=== PATIENT | male | born 1985 | race African-American/Black ===

== ENCOUNTER 2017-06-08 10:17 | Emergency (ER) | payer OTHER ==
[~2017-06-08] VITALS: Ht 182.9 cm; Wt 98.4 kg
[~2017-06-08 10:17] MED LIST: ALPR-429 PO; AMLO-96 PO; AMOX-559 PO; CEPH500T7 PO; FLUT16SP19 NS; GLUC1KIT4 IJ; HYDR-318 PO; IBU800 PO; IBUP800T37 PO; INSU100C14 SQ; INSU300I SQ; LISI-362 PO; LISI-374 PO; LISI20TA29 PO; OXYC-865 PO; PRED20TA6 PO; PROM-110 PO; SERT-181 PO; SERT-184 PO; SULF-198 PO
[2017-06-08] MEDS ORDERED: ALPR-429 PO (10:35)
--- NOTE | 2017-06-08 10:39 | ER Report ---
History and Physical Time Seen By MD: 10:38 Hx. of Stated Complaint: PT REPORTS SEVERE HEADACHE 10/10, WEAKNESS, NAUSEA, ABDOMINAL PAIN, THROBBING BEHIND EYES, DIZZINESS, FATIGUE; RECEIVING IVIG TREATMENTS FOR DIABETIC NEUROPATHY HPI/ROS CC: Headache other control, nausea, muscle aches. HPI: 31-year-old male with a past medical history of hypertension, type I diabetes on insulin pump. Patient presented from infusion therapy. Patient is receiving IVIG 400 g per day for his diabetic neuropathy. This is. Ordered per his neurologist at [facility]. His diabetic pump is being managed by his aircraft machinist helper at [facility]. This is his 3rd day of therapy for his IVIG. After the 1st day felt slightly weak. Secondary he felt with more malaise. Today he woke up with nausea but no emesis. He feels somewhat dizzy. He does have a headache which she is rating it as an 8 out of 10. It is behind his eyes. There are no leading factors. His blood pressure was slightly elevated at infusion therapy with a systolic pressure in the 180s. This is most likely secondary to his headache but he was sent to the emergency department for further evaluation and treatment. Upon arrival to the emergency department patient is continued with a headache, malaise, no blurred vision, no chest pain, slight shortness of breath , no diaphoresis. He states that he did have diarrhea on day 2 of his IVIG therapy. ROS: 12 point review of systems essentially negative other than what's mentioned in history of present illness. NURSES AND OLD MEDICAL RECORDS: Reviewed PMH: Reviewed SURGICAL HX: Reviewed FAMILY HX: Noncontributory SOCIAL HX: He is and denies smoking alcohol or illicit drugs. VITAL SIGNS: Reviewed CONSTITUTIONAL: 31-year-old male in moderate distress. PHYSICAL EXAM: HEENT: Pupils equal round reactive to light and accommodate, EOMI, tympanic membranes pearly white umbo present with good light reflex. Lips dry mucous membranes moist gums nonbleeding uvula midline and rises equally with phonation, oropharynx noninjected, teeth intact. NECK: Neck supple, thyroid not appreciated, anterior and posterior cervical lymphadenopathy not appreciated. Trachea midline and rises equally with phonation. CARDIAC: S1-S2 regular rate rhythm no murmurs rubs or gallops. LUNGS: Lungs clear bilaterally posteriorly in all romero. Good air movement. ABDOMEN: Abdomen soft, nondistended, bowel sounds active in all 4 quadrants, no bruits noted, no CVA tenderness. MUSCULOSKELETAL: Strength 5 out of 5 x 4 extremities, no deformities noted. NEUROLOGIC: Patient alert and oriented by 3 Allergies: Coded Allergies: No Known Drug Allergies (Unverified , 05/15/17) Home Meds Active Scripts Glucagon,Human Recombinant (GLUCAGON EMERGENCY KIT) 1 Mg Kit, 1 MG IJ ONCE, #1 KIT Prov:RAMIRO URBANO MD 09/19/16 Reported Medications Alprazolam (XANAX) 0.5 Mg Tablet, 1 TAB PO TID, TAB 06/08/17 Amlodipine Besylate (AMLODIPINE BESYLATE) 5 Mg Tablet, 1 TAB PO QDAY, TAB 06/06/17 Lisinopril (LISINOPRIL) 40 Mg Tablet, 40 MG PO QDAY, TAB 06/06/17 Insulin Aspart (NOVOLOG) 100 Unit/1 Ml Cartridge, 10 UNIT SQ TID 08/11/16 Hx Smoking: Yes Smoking Status: Former Smoker Exposure to Second Hand Smoke?: No ( continues to smoke) Hx Substance Use Disorder: No Hx Alcohol Use: Yes (RARELY) Constitutional Vital Sign - Last 24 Hours 06/08/17 06/08/17 06/08/17 06/08/17 10:17 10:26 10:26 10:30 Temp 98.4 Pulse ??? 92 Resp 18 B/P (MAP) 199/128 199/128 (151) 206/124 (151) Pulse Ox 89 O2 Delivery Room Air 06/08/17 06/08/17 06/08/17 06/08/17 10:32 10:47 10:52 11:07 Pulse 85 ? 86 Resp 13 0 Pulse Ox 91 94 06/08/17 06/08/17 06/08/17 06/08/17 11:22 11:30 11:37 11:52 Pulse 79 82 84 Resp 13 25 9 B/P (MAP) 178/108 (131) Pulse Ox 91 96 90 06/08/17 06/08/17 06/08/17 06/08/17 11:53 12:00 12:07 12:18 Pulse 63 Resp 24 B/P (MAP) 165/104 (124) 159/108 (125) 181/117 (138) Pulse Ox 99 06/08/17 06/08/17 06/08/17 06/08/17 12:20 12:22 12:30 12:37 Temp 98.3 Pulse 97 ??? Resp 15 B/P (MAP) ???/??? (2105) Pulse Ox 97 Medical Decision Making Data Points Result Diagram: 06/08/17 1045 06/08/17 1045 Laboratory Hematology Test 06/08/17 10:35 06/08/17 10:45 06/08/17 13:29 Urine Color Yellow Urine Clarity Clear Urine pH 6.0 pH (4.8-9.5) Urine Specific Boutte 1.017 Urine Protein 100 mg/dL (NEGATIVE) Urine Glucose (UA) Negative mg/dL (NEGATIVE) Urine Ketones Negative mg/dL (NEGATIVE) Urine Blood Large (NEGATIVE) Urine Nitrite Negative (NEGATIVE) Urine Bilirubin Negative (NEGATIVE) Urine Urobilinogen Negative mg/dL (0.2-1.9) Urine Leukocyte Esterase Negative (NEGATIVE) Urine RBC 51 /HPF (0-2/HPF) Urine WBC 3 /HPF (0-5/HPF) Urine Squamous Epithelial Cells None /LPF (</=FEW) Urine Transitional Epithelial Cells Few /LPF (NONE-FEW) Urine Bacteria Negative /HPF (NONE-FEW) Urine Hyaline Casts Few /LPF (NONE-FEW) Urine Mucus Few /HPF (NONE-FEW) Red Blood Count 4.55 M/uL (4.00-5.60) Mean Corpuscular Volume 83.1 fL (80.0-96.0) Mean Corpuscular Hemoglobin 29.5 pg (26.0-33.0) Mean Corpuscular Hemoglobin Concent 35.5 g/dL (32.0-36.0) Red Cell Distribution Width 12.6 % (11.5-14.5) Mean Platelet Volume 7.3 fL (7.2-11.1) Neutrophils (%) (Auto) 64.6 % (39.4-72.5) Lymphocytes (%) (Auto) 22.5 % (17.6-49.6) Monocytes (%) (Auto) 11.3 % (4.1-12.4) Eosinophils (%) (Auto) 0.7 % (0.4-6.7) Basophils (%) (Auto) 0.9 % (0.3-1.4) Nucleated RBC Relative Count (auto) 0.0 /100WBC Neutrophils # (Auto) 4.3 K/uL (2.0-7.4) Lymphocytes # (Auto) 1.5 K/uL (1.3-3.6) Monocytes # (Auto) 0.7 K/uL (0.3-1.0) Eosinophils # (Auto) 0.0 K/uL (0.0-0.5) Basophils # (Auto) 0.1 K/uL (0.0-0.1) Nucleated RBC Absolute Count (auto) 0.00 K/uL Sodium Level 138 mmol/L (137-145) Potassium Level 3.9 mmol/L (3.5-5.0) Chloride Level 103 mmol/L (98-107) Carbon Dioxide Level 24 mmol/L (22-30) Blood Urea Nitrogen 18 mg/dl (9-21) Creatinine 1.10 mg/dl (0.66-1.25) Glomerular Filtration Rate Calc > 60.0 Random Glucose 122 mg/dl (75-110) Calcium Level 9.2 mg/dl (8.4-10.2) Magnesium Level 1.7 mg/dl (1.7-2.2) Total Bilirubin 0.9 mg/dl (0.2-1.3) Aspartate Amino Transf (AST/SGOT) 27 U/L (0-35) Alanine Aminotransferase (ALT/SGPT) 33 U/L (0-56) Alkaline Phosphatase 96 U/L (0-126) Total Creatine Kinase 142 U/L (55-170) Troponin I < 0.012 ng/ml Total Protein 9.3 gm/dl (6.3-8.2) Albumin 3.7 g/dl (3.5-5.0) Prothrombin Time 13.7 seconds (12.0-14.4) Prothromb Time International Ratio 1.05 Activated Partial Thromboplast Time 27 seconds (23-35) Chemistry Test 06/08/17 10:35 06/08/17 10:45 06/08/17 13:29 Urine Color Yellow Urine Clarity Clear Urine pH 6.0 pH (4.8-9.5) Urine Specific Boutte 1.017 Urine Protein 100 mg/dL (NEGATIVE) Urine Glucose (UA) Negative mg/dL (NEGATIVE) Urine Ketones Negative mg/dL (NEGATIVE) Urine Blood Large (NEGATIVE) Urine Nitrite Negative (NEGATIVE) Urine Bilirubin Negative (NEGATIVE) Urine Urobilinogen Negative mg/dL (0.2-1.9) Urine Leukocyte Esterase Negative (NEGATIVE) Urine RBC 51 /HPF (0-2/HPF) Urine WBC 3 /HPF (0-5/HPF) Urine Squamous Epithelial Cells None /LPF (</=FEW) Urine Transitional Epithelial Cells Few /LPF (NONE-FEW) Urine Bacteria Negative /HPF (NONE-FEW) Urine Hyaline Casts Few /LPF (NONE-FEW) Urine Mucus Few /HPF (NONE-FEW) White Blood Count 6.6 k/uL (4.5-11.0) Red Blood Count 4.55 M/uL (4.00-5.60) Hemoglobin 13.4 g/dL (14.0-18.0) Hematocrit 37.8 % (42.0-52.0) Mean Corpuscular Volume 83.1 fL (80.0-96.0) Mean Corpuscular Hemoglobin 29.5 pg (26.0-33.0) Mean Corpuscular Hemoglobin Concent 35.5 g/dL (32.0-36.0) Red Cell Distribution Width 12.6 % (11.5-14.5) Platelet Count 282 K/uL (150-450) Mean Platelet Volume 7.3 fL (7.2-11.1) Neutrophils (%) (Auto) 64.6 % (39.4-72.5) Lymphocytes (%) (Auto) 22.5 % (17.6-49.6) Monocytes (%) (Auto) 11.3 % (4.1-12.4) Eosinophils (%) (Auto) 0.7 % (0.4-6.7) Basophils (%) (Auto) 0.9 % (0.3-1.4) Nucleated RBC Relative Count (auto) 0.0 /100WBC Neutrophils # (Auto) 4.3 K/uL (2.0-7.4) Lymphocytes # (Auto) 1.5 K/uL (1.3-3.6) Monocytes # (Auto) 0.7 K/uL (0.3-1.0) Eosinophils # (Auto) 0.0 K/uL (0.0-0.5) Basophils # (Auto) 0.1 K/uL (0.0-0.1) Nucleated RBC Absolute Count (auto) 0.00 K/uL Glomerular Filtration Rate Calc > 60.0 Calcium Level 9.2 mg/dl (8.4-10.2) Magnesium Level 1.7 mg/dl (1.7-2.2) Total Bilirubin 0.9 mg/dl (0.2-1.3) Aspartate Amino Transf (AST/SGOT) 27 U/L (0-35) Alanine Aminotransferase (ALT/SGPT) 33 U/L (0-56) Alkaline Phosphatase 96 U/L (0-126) Total Creatine Kinase 142 U/L (55-170) Troponin I < 0.012 ng/ml Total Protein 9.3 gm/dl (6.3-8.2) Albumin 3.7 g/dl (3.5-5.0) Prothrombin Time 13.7 seconds (12.0-14.4) Prothromb Time International Ratio 1.05 Activated Partial Thromboplast Time 27 seconds (23-35) Coagulation Test 06/08/17 13:29 Prothrombin Time 13.7 seconds Prothromb Time International Ratio 1.05 Activated Partial Thromboplast Time 27 seconds Urinalysis Test 06/08/17 10:35 Urine Color Yellow Urine Clarity Clear Urine pH 6.0 pH (4.8-9.5) Urine Specific Boutte 1.017 Urine Protein 100 mg/dL (NEGATIVE) Urine Glucose (UA) Negative mg/dL (NEGATIVE) Urine Ketones Negative mg/dL (NEGATIVE) Urine Blood Large (NEGATIVE) Urine Nitrite Negative (NEGATIVE) Urine Bilirubin Negative (NEGATIVE) Urine Urobilinogen Negative mg/dL (0.2-1.9) Urine Leukocyte Esterase Negative (NEGATIVE) Urine RBC 51 /HPF (0-2/HPF) Urine WBC 3 /HPF (0-5/HPF) Urine Squamous Epithelial Cells None /LPF (</=FEW) Urine Transitional Epithelial Cells Few /LPF (NONE-FEW) Urine Bacteria Negative /HPF (NONE-FEW) Urine Hyaline Casts Few /LPF (NONE-FEW) Urine Mucus Few /HPF (NONE-FEW) EKG/Imaging EKG Interpretation Nose sinus rhythm, ventricular rate 84 bpm,. 144 ms, QRS duration 82 ms, QT 60 ms, QTC 425 ms. Imaging Chest x-ray: IMPRESSION: 1. No acute cardiopulmonary process is seen CT chest: IMPRESSION: Normal CT of the brain. No evidence of mass, acute ischemia or hemorrhage. CT abdomen and pelvis: IMPRESSION: Right kidney parenchymal edema and perinephric stranding; no radiopaque urolithiasis or hydronephrosis. Differential considerations include changes from a recently passed stone, a urinary tract infection/pyelonephritis, or potentially medical renal disease. ED Course/Re-evaluation ED Course Labs are basically within normal limits. Urine showed large amount of blood. CT abdomen and pelvis showed perinephric stranding which was a pyelonephritis or a recently passed ureteral calculi. Patient was given Levaquin and IV Rocephin. I discussed the case with his neurologist at [facility] Dr. Johnston. Report given that the patient had an three-day history of increasing nausea and malaise. Is most likely due to a passed ureteral calculi. He, Dr. Johnston has opted to hold IVIG at this time. Patient be discharged home on antiemetics and follow-up with Dr. Johnston. Patient aware of plan and in agreement. Patient will be discharged home on Levaquin And Zofran. Re-evaluation Medical decision making reaction to IVIG, influenza, strep, ureteral calculi. Decision to Disposition Date: Jun 08, 2017 Decision to Disposition Time: 14:45 Depart Departure Latest Vital Signs Vital Signs Date Time Temp Pulse Resp B/P (MAP) Pulse Ox O2 Delivery O2 Flow Rate FiO2 06/08/17 12:37 ??? 06/08/17 12:30 ???/??? (1665) 06/08/17 12:22 15 97 06/08/17 12:20 98.3 06/08/17 10:26 Room Air Impression: Primary Impression: Kidney stones Condition: Improved Disposition: HOME OR SELF-CARE Referrals: RAMIRO URBANO MD (PCP) New Scripts Ondansetron (ZOFRAN ODT) 4 Mg Tab.rapdis 8 MG PO Q6H Y for NAUSEA/VOMITING, #20 TAB.STEPHANIE 0 Refills Prov: DAMI SOL MD 06/08/17 Levofloxacin 750 Mg Tab (LEVAQUIN 750 MG TAB) 750 Mg Tablet 750 MG PO QDAY for 7 Days, #7 TAB Prov: DAMI SOL MD 06/08/17 Patient Instructions: Kidney Stones (ED) Additional Instructions: You have been given Levaquin for possible kidney infection take as directed. You have been given given Zofran for nausea take as directed. DAMI SOL MD Jun 08, 2017 10:39
[2017-06-08] MEDS ORDERED: ONDANSETRON 4 MG/2 ML VIAL IVP ONE (10:55)
[2017-06-08] MEDS ORDERED: HYDROmorphone(ER ONLY) 1 MG/ML IVP ONE (10:55)
[2017-06-08 11:04] LABS: PLATELET COUNT, AUTOMATED 282 K/uL (150-450)
--- NOTE | 2017-06-08 11:10 | RADIOLOGY IMAGING REPORT ---
FACILITY: [facility] PATIENT NAME: Jose Christian : 1985 MR: [id number] V: [id number] EXAM DATE: ORDERING PHYSICIAN: DAMI SOL TECHNOLOGIST: Location: [facility] Patient: Jose Christian : 1985 Visit/Account:[id number] Date of Sevice: 06/08/2017 HEAD W/O CONTRAST Provided history: Additional pertinent history: none TECHNIQUE: Imaging was obtained from the skull base through the vertex without intravenous contrast. Source images were reformatted in the coronal sagittal planes. One of the following dose optimization techniques was utilized in the performance of this exam: Autom ated exposure control; adjustment of the mA and/or kV according to the patient's size; or use of an i terative reconstruction technique. Specific details can be referenced in the facility's radiology CT exam operational policy. COMPARISON STUDIES: MRI 03/01/17 FINDINGS: Brain volume: Normal Acute cortical ischemia: None Chronic cortical and ganglionic ischemia: none significant Hemorrhage: None Masses / edema: None White matter: Normal Vessels: Normal Extra-axial: None significant Calvarium / scalp: Negative Skull base: negative Visualized sinuses / orbits: negative IMPRESSION: Normal CT of the brain. No evidence of mass, acute ischemia or hemorrhage. Report Dictated By: Zhang Reece MD at 06/08/2017 11:05 AM Report E-Signed By: Zhang Reece MD at 06/08/2017 11:07 AM WSN:[id number]
--- NOTE | 2017-06-08 11:22 | RADIOLOGY IMAGING REPORT ---
FACILITY: [facility] PATIENT NAME: Jose Christian : 1985 MR: [id number] V: [id number] EXAM DATE: ORDERING PHYSICIAN: DAMI SOL TECHNOLOGIST: Location: [facility] Patient: Jose Christian : 1985 Visit/Account:[id number] Date of Sevice: 06/08/2017 Exam type: CHEST PA AND LAT History: Headache no chest complaints Comparison: None. Findings: The lungs are free of acute effusions, infiltrates or edema. The trachea is in midline. The cardiac silhouette is normal in size. IMPRESSION: 1. No acute cardiopulmonary process is seen Report Dictated By: Adriana Horowitz MD at 06/08/2017 11:18 AM Report E-Signed By: Adriana Horowitz MD at 06/08/2017 11:19 AM WSN:[email or web address]
[2017-06-08] MEDS ORDERED: PROMETHAZINE 25 MG/ML 1 ML AMP IVP ONE (12:00)
--- NOTE | 2017-06-08 13:12 | RADIOLOGY IMAGING REPORT ---
FACILITY: [facility] PATIENT NAME: Jose Christian : 1985 MR: [id number] V: [id number] EXAM DATE: ORDERING PHYSICIAN: DAMI SOL TECHNOLOGIST: Location: [facility] Patient: Jose Christian : 1985 Visit/Account:[id number] Date of Sevice: 06/08/2017 EXAMINATION: CT ABDOMEN AND PELVIS WITHOUT CONTRAST COMPARISON: None. HISTORY: Right-sided abdominal pain. PROCEDURE: Multiplanar noncontrast CT of the abdomen and pelvis. One of the following dose optimizati on techniques was utilized in the performance of this exam: Automated exposure control; adjustment of the mA and/or kV according to the patient's size; or use of an iterative reconstruction technique. Specific details can be referenced in the facility's radiology CT exam operational policy. FINDINGS: Evaluation of the solid and viscus parenchymal organs and vascular structures is limited wi thout the benefit of IV contrast. Visualized thorax: Negative. Liver: Noncontrast imaging of the visualized liver is within normal limits. Gallbladder and biliary system: Negative Spleen: Spleen size is normal. Pancreas: Noncontrast imaging of the pancreas is within normal limits. Adrenal glands: Negative. Kidneys and bladder: Right kidney parenchymal edema and perinephric stranding. No radiopaque urolithi asis or hydronephrosis. Urinary bladder is unremarkable. Vessels: Small amount of aortic calcifications. No abdominal aortic aneurysm. Bowel and mesentery: Stomach is within normal limits. No small bowel obstruction. Appendix is unrem arkable. Small amount of stool within the colon. No focal region of bowel or mesenteric inflammatio n. Pelvic organs: Negative. Lymph nodes: No adenopathy. Free air/free fluid: None. Abdominal wall and osseous structures: Negative. IMPRESSION: Right kidney parenchymal edema and perinephric stranding; no radiopaque urolithiasis or hydronephrosi s. Differential considerations include changes from a recently passed stone, a urinary tract infectio n/pyelonephritis, or potentially medical renal disease. Report Dictated By: Nicholas Yang MD at 06/08/2017 1:02 PM Report E-Signed By: Nicholas Yang MD at 06/08/2017 1:08 PM WSN:[id number]
[2017-06-08 13:46] LABS: INR 1.05
[2017-06-08 14:00] VITALS: BP 162/101
[2017-06-08] MEDS ORDERED: cefTRIAXone 1 GM VIAL IM ONE (14:15)
[2017-06-08] MEDS ORDERED: LEVOFLOXACIN 750 MG TAB PO ONE (14:15)
[2017-06-08] MEDS ORDERED: LIDOCAINE 1% MDV 200 MG/20 ML INJ ONE (14:15)
[2017-06-08] MEDS ORDERED: cefTRIAXone 1 GM VIAL IVP ONE (14:20)
--- NOTE | 2017-06-08 14:38 | EKG ---
FACILITY: [facility] [place] PATIENT NAME: CHANTE MAI : [id number] MR: [id number] V: [id number] EXAM DATE: ORDERING PHYSICIAN: DAMI SOL TECHNOLOGIST: Test Reason : Blood Pressure : / mmHG Vent. Rate : 084 BPM Atrial Rate : 084 BPM P-R Int : 144 ms QRS Dur : 082 ms QT Int : 360 ms P-R-T Axes : 034 039 034 degrees QTc Int : 425 ms Sinus rhythm No acute appearing findings Confirmed by JORDON PHIPPS ([id number]) on 06/08/2017 2:44:57 PM Referred By: Confirmed By:JORDON PHIPPS
[2017-06-08] MEDS ORDERED: LEVO750T44 PO (14:51)
[2017-06-08] MEDS ORDERED: ONDA4TAB PO (14:51)
[2017-06-12] MEDS ORDERED: AMLO-99 PO (10:53)
[2017-06-12] MEDS ORDERED: LISI-374 PO (10:53)
[2017-06-12] MEDS ORDERED: HYDR-2966 PO (10:53)
[2017-06-12] MEDS ORDERED: SERT-184 PO (10:58)
== END 2017-06-08 15:15 | disposition home or self-care (01) ==
LOC: ER 10:18
DX: N20.0 Calculus of kidney (principal); I10 Essential (primary) hypertension; E10.9 Type 1 diabetes mellitus without complications; R51 Headache; R06.02 Shortness of breath
CPT/HCPCS: 36415; 70450; 71046; 81001; 82550; 83735; 84484; 85025; 85610; 85730; 93005; 96374; 96375; 99284; J0696; J1170; J2405; J2550; 74176; 82040; 82247; 82310; 82374; 82435; 82565; 82947; 84075; 84132; 84155; 84295; 84450; 84460; 84520

== ENCOUNTER 2017-06-23 09:54 | Outpatient (RCR) | payer OTHER ==
[2017-05-15 10:34] VITALS: BP 178/110
[2017-06-05 08:50] VITALS: BP 178/108
[2017-06-05] MEDS: NS(*) 0.9% 1000 ML BAG 1,000 ML IV PRN (09:12)
[2017-06-05] MEDS: LIDOCAINE/SOD BICARB 8.4% SYR ID PRN (09:12)
[2017-06-05] MEDS: diphenhydrAMINE 50 MG/ML VIAL IVP PRN (09:26)
[2017-06-05] MEDS: ACETAMINOPHEN 325 MG TAB PO PRN (09:26)
[2017-06-05 10:00] VITALS: BP 169/109
[2017-06-05 11:19] VITALS: BP 165/105
[2017-06-05 13:28] VITALS: BP 168/96
[2017-06-06 10:15] VITALS: BP 162/102
[2017-06-06] MEDS: diphenhydrAMINE 50 MG/ML VIAL IVP PRN (10:23)
[2017-06-06] MEDS: ACETAMINOPHEN 325 MG TAB PO PRN (10:23)
[2017-06-06] MEDS: NS(*) 0.9% 1000 ML BAG 1,000 ML IV PRN (10:24)
[2017-06-06 13:35] VITALS: BP 174/102
[2017-06-07 10:04] VITALS: BP 176/94
[2017-06-07] MEDS: ACETAMINOPHEN 325 MG TAB PO PRN (11:24)
[2017-06-07] MEDS: NS(*) 0.9% 1000 ML BAG 1,000 ML IV PRN (11:25)
[2017-06-07] MEDS: diphenhydrAMINE 50 MG/ML VIAL IVP PRN (11:26)
[2017-06-07 14:28] VITALS: BP 168/104
[2017-06-08 10:08] VITALS: BP 186/112
[2017-06-21] MEDS: LIDOCAINE/SOD BICARB 8.4% SYR ID PRN (10:30)
[2017-06-21] MEDS: ACETAMINOPHEN 325 MG TAB PO PRN (10:43)
[2017-06-21] MEDS: diphenhydrAMINE 50 MG/ML VIAL IVP PRN (10:44)
[2017-06-21 12:06] VITALS: BP 141/109
[2017-06-21] MEDS: NS(*) 0.9% 1000 ML BAG 1,000 ML IV PRN (12:47)
[2017-06-21 15:20] VITALS: BP 147/102
[~2017-06-23] VITALS: Ht 182.9 cm; Wt 101.1 kg
[~2017-06-23 09:54] MED LIST changes: +AMLO-99 PO; +DEXTROSE 5%(*) 100 ML BAG 100 ML IVPB PRN; +HYDR-2966 PO; +IMMU GLOB(IGG) 10GR/100ML VIAL 40 GR in EMPTY EVACUATED CONT 0 ML IV ONE; +LEVO750T44 PO; +NS(*) 0.9% 100 ML BAG 100 ML IVPB PRN; +ONDA4TAB PO; +diphenhydrAMINE 50 MG/ML VIAL IVP PRN
[2017-06-23 10:04] VITALS: BP_SYST 152; BP_SYST 173; BP_DIAS 113; BP_DIAS 84
[2017-06-23] MEDS ORDERED: IMMU GLOB(IGG) 10GR/100ML VIAL 40 GR in EMPTY EVACUATED CONT 0 ML IV ONE (10:25)
[2017-06-23] MEDS: ACETAMINOPHEN 325 MG TAB PO PRN (10:27)
[2017-06-23] MEDS: NS(*) 0.9% 1000 ML BAG 1,000 ML IV PRN (10:40)
[2017-06-23 14:44] VITALS: BP 142/86
[2017-06-26] MEDS ORDERED: HYDR-2966 PO (10:28)
[2017-06-26] MEDS ORDERED: SERT-181 PO (10:38)
[2017-07-12] MEDS ORDERED: FLUT16SP19 NS (11:47)
== END 2017-07-19 10:26 | disposition home or self-care (01) ==
LOC: SPU 09:54
PROVIDERS: ATTEND Psychiatry & Neurology Neurology
DX: E13.9 Other specified diabetes mellitus without complications (principal); R53.83 Other fatigue
CPT/HCPCS: 82784; 96361; 96365; 96366; 96375; J1200; J1459; J7030; J7050; 82040; 82247; 82310; 82374; 82435; 82565; 82947; 84075; 84132; 84155; 84295; 84450; 84460; 84520

== ENCOUNTER → 2017-08-02 | Outpatient (CLI) | payer OTHER ==
[~2017-08-02] MED LIST changes: -DEXTROSE 5%(*) 100 ML BAG 100 ML IVPB PRN; -IMMU GLOB(IGG) 10GR/100ML VIAL 40 GR in EMPTY EVACUATED CONT 0 ML IV ONE; -NS(*) 0.9% 100 ML BAG 100 ML IVPB PRN; -diphenhydrAMINE 50 MG/ML VIAL IVP PRN
== END ==
LOC: LAB 15:17
PROVIDERS: ATTEND Emergency Medicine
DX: R00.0 Tachycardia, unspecified (principal); I10 Essential (primary) hypertension
CPT/HCPCS: 36415; 82088; 82310; 82374; 82435; 82565; 82947; 83835; 84132; 84244; 84295; 84443; 84520

== ENCOUNTER → 2017-08-30 | Outpatient (CLI) | payer OTHER ==
[~2017-08-30] MED LIST changes: +METO100T20 PO
--- NOTE | 2017-08-30 16:52 | RADIOLOGY IMAGING REPORT ---
FACILITY: [facility] PATIENT NAME: Jose Christian : 1985 MR: [id number] V: [id number] EXAM DATE: ORDERING PHYSICIAN: RAMIRO URBANO TECHNOLOGIST: Location: [facility] Patient: oJse Christian : 1985 Visit/Account:[id number] Date of Sevice: 08/30/2017 Exam type: ARTERIAL LOWER EXT LEFT History: left lower extremity ulcer Comparison: January 25, 2017. Findings: Triphasic waveforms are seen throughout the left lower extremity arterial tree. The peak systolic ve locities are as follows. Left common femoral artery 138 cm/s Left profunda femoral artery 59 cm/s Superficial femoral artery proximally 95 cm/s Superficial femoral artery mid 101 cm/s Superficial femoral artery distally 90 cm/s Popliteal artery proximally 73 cm/s Popliteal artery distally 69 cm/s Peroneal artery 69 centers per second Posterior tibial artery 108 cm/s Anterior tibial artery 105 cm/s Dorsalis pedis artery 108 cm/s IMPRESSION: 1. Triphasic flow is seen throughout the left lower extremity arterial tree with no hemodynamically significant lesions identified. Report Dictated By: Adriana Horowitz MD at 08/30/2017 4:41 PM Report E-Signed By: Adriana Horowitz MD at 08/30/2017 4:47 PM WSN:[email or web address]
== END ==
LOC: US 02:11
PROVIDERS: ATTEND Emergency Medicine
DX: L97.529 Non-pressure chronic ulcer of other part of left foot with unspecified severity (principal)

== ENCOUNTER 2017-09-07 15:15 | Outpatient (RCR) | payer OTHER ==
--- NOTE | 2017-08-17 16:08 | PT INITIAL EVALUATION ---
MEDICAL DIAGNOSIS: L) Great toe; plantar surface of MTP joint; neuropathic ulcer TREATMENT DIAGNOSIS: same DATE OF ONSET: July 2017 SUBJECTIVE: Pt states that he noted a dark area beneath his callous that then became a softer "blood blister" like area, which began to bleed. Pt has been addressing it without significant success and then was seen by his perioperative assistant, Dr. Hoskins, for further off-loading and cast shoe, as well as to address the callous formation. Pt now arrives with a dressing in place and ongoing drainage noted. B) feet dry and some cracking also observed. Pt encouraged to apply diabetic foot cream daily, avoiding spaces between the toes in order to prevent further cracking that would increase risk for further wounds and potential for infection. REHAB PROBLEM LIST: Open wound at Plantar surface of L) Great toe, MTP joint. PREVIOUS MEDICAL HISTORY: Type I diabetes, diabetic myopathy with B) LE's. Pt states that he also has AFO's that he wears occasionally and arrives with an open toed cast shoe with offloading felt support on L) foot. OCCUPATION: applying for disability; currently unemployed OBJECTIVE: Wound meausres: 0.4cm L x 0.1cm W x 0.3cm D with periwound callous formation; No active signs or symptoms of infection noted. No increased warmth, edema or odor appreciated. ASSESSMENT: Wound cleansed with sterile saline and non-excisional, selective debridement completed with the use of scissors and tweezers to a depth of subcutaneous tissue in order to bevel edges of wound to a healthy wound base and remove excess callous. Wound again cleansed with sterile saline and wick of silver calcium alginate tucked into small opening to allow for appropriate drainage. Periwound callous treated with vasaline and area covered with bordered gauze dressing. Short Term Goals 1. Dressing to remain clean, dry and intact between PT visits 2. Wound base to demo 100% granulation 3. Wound edges to remain supple and allow for epithelialization across wound after base heals upward 4. Pt to demo understanding of preventative tools to minimize risk of future wounds and complications related to type I diabetes. Patient's Goals Wound to heal efficiently without further complication. PLAN: Patient to be seen for non-excisional, selective debridement and advanced wound care product selection to optimize drainage management and facilitate moist wound bed healing, as well as education regarding preventative techniques to minimize risk of future wounds. 1x/Week for up to 3 months Thank you for this referral. If you have any questions, comments, or concerns about this report or plan, please contact me at . H. Chloe Isaac, PT, MPT MTDD
--- NOTE | 2017-09-08 23:25 | PT PLAN OF CARE ---
Physician: Dr. Wilfrdeo Hoskins, DPM Patient is being seen: Jose Christian Therapist: Davon Isaac, PT, MPT Medical Diagnosis: L) Great toe; plantar surface of MTP joint; neuropathic ulcer Treatment Diagnosis: same Date of Onset: 08/13 Date of Initial Evaluation: 08/17/17 Date patient was last seen: 09/07/17 Number of treatments: 4 Number of cancellations/No shows: 0 INTERVENTIONS: Non-excisional, selective debridement and advanced wound care product selection to optimize drainage management and facilitate moist wound bed healing, as well as education regarding preventative techniques to minimize risk of future wounds. GOALS: 1. Dressing to remain clean, dry and intact between PT visits 2. Wound base to demo 100% granulation 3. Wound edges to remain supple and allow for epithelialization across wound after base heals upward 4. Pt to demo understanding of preventative tools to minimize risk of future wounds and complications related to type I diabetes. PATIENT'S GOAL: Wound to heal efficiently without further complication. Status of Patient's Goals: Met Patient Compliance: Excellent Prognosis: Good Reasons for continuing therapy: None at this time as wound appears fully healed ; No evidence of discoloration or drainage noted beneath callous. Pt to follow up with customer resource specialist on a regular basis for nail care and callous management and has been instructed to apply diabetic moisturizer to feet to assist in callous prevention. Pt also scheduled to follow up with [facility] for new AFO's per neurologist's prescription. Thank you for this referral. If you have any questions, comments, or concerns about this report or plan, please contact me at . Davon Isaac, PT, MPT [facility]
== END 2017-09-07 18:00 | disposition home or self-care (01) ==
LOC: PT 15:15
PROVIDERS: ATTEND Podiatrist Foot & Ankle Surgery
DX: E10.621 Type 1 diabetes mellitus with foot ulcer (principal); L97.522 Non-pressure chronic ulcer of other part of left foot with fat layer exposed
CPT/HCPCS: 97161

== ENCOUNTER → 2017-10-19 | Outpatient (CLI) | payer OTHER ==
[~2017-10-19] MED LIST changes: +BUSP7.5T7 PO; +CHOL500025 PO; +METO200T12 PO; +SPIR25TA78 PO
== END ==
LOC: LAB 09:30
PROVIDERS: ATTEND Emergency Medicine
DX: I10 Essential (primary) hypertension (principal); E55.9 Vitamin D deficiency, unspecified
CPT/HCPCS: 36415; 82306; 82310; 82374; 82435; 82565; 82947; 84132; 84295; 84520

== ENCOUNTER → 2017-11-09 | Outpatient (CLI) | payer OTHER ==
[~2017-11-09] MED LIST changes: +FLUO10TA24 PO
== END ==
LOC: LAB 10:43
PROVIDERS: ATTEND Emergency Medicine
DX: I10 Essential (primary) hypertension (principal)
CPT/HCPCS: 36415; 82310; 82374; 82435; 82565; 82947; 84132; 84295; 84520

== ENCOUNTER 2018-04-20 11:52 | Emergency (ER) | payer OTHER ==
[~2018-04-20 11:52] MED LIST changes: +AMLO-111 PO; +AMLO-113 PO; -AMLO-96 PO; -AMLO-99 PO; -SPIR25TA78 PO; +SPIR25TA80 PO
--- NOTE | 2018-04-20 12:01 | ER Report ---
History and Physical Time Seen By MD: 12:01 HPI/ROS CHIEF COMPLAINT: Ulceration on left foot HISTORY OF PRESENT ILLNESS: 32-year-old male patient presents to emergency room with complaint of ulceration to the left foot. Patient states that he has been having problems with this for the last few days. He states that he has had a history of ulceration to the left foot. He states that he is seen a engineering team supervisor in the past, Dr. Hoskins, however he noted swelling and redness 2 days ago. He denies having any fevers, chills at this time but states he did have fevers a few days ago. He states that caused him to panic and Xanax and he is feeling better at this time. Patient states that he currently is using an insulin pump to help control his diabetes. Patient does have a past medical history of diabetic neuropathy with numbness from the knees down. Patient had noticed some fluctuance under the left great toe. He is also noticed swelling and erythema to the foot. REVIEW OF SYSTEMS: Respiratory: No cough, no dyspnea. Cardiovascular: No chest pain, no palpitations. Gastrointestinal: No vomiting, no abdominal pain. Musculoskeletal: As noted above Allergies: Coded Allergies: No Known Drug Allergies (Unverified , 04/20/18) Home Meds Active Scripts Sulfamethoxazole/Trimet 800-160 Mg Tab (BACTRIM DS TABLET) 1 Each Tablet, 1 TAB PO Q12H, #20 TAB Prov:MIRIAM CULVER [facility] 04/20/18 Cephalexin 500 Mg Tab (KEFLEX 500 MG TAB) 500 Mg Tablet, 500 MG PO Q6H, #28 TAB Prov:MIRIAM CULVER [facility] 04/20/18 Buspirone Hcl (BUSPIRONE HCL) 7.5 Mg Tablet, 7.5 MG PO BID, #60 TAB 0 Refills Prov:RAMIRO URBANO MD 12/13/17 Metoprolol Succinate (METOPROLOL SUCCINATE) 200 Mg Tab.er.24h, 1 TAB PO QDAY, #30 TAB Prov:RAMIRO URBANO MD 11/23/17 Hydrochlorothiazide (HYDROCHLOROTHIAZIDE) 25 Mg Tablet, 1 TAB PO QDAY, #90 TAB 3 Refills Prov:RAMIRO URBANO MD 11/23/17 Cholecalciferol (Vitamin D3) (VITAMIN D3) 5,000 Unit Tablet, 5000 UNIT PO DAILY, #90 TAB 0 Refills Prov:RAMIRO URBANO MD 10/20/17 Fluticasone Prop 50 Mcg Ns (FLONASE 50 MCG NS) 16 Gm [place].susp, 2 SPRAYS NS Q DAY, #1 BOT Prov:RAMIRO URBANO MD 07/12/17 Amlodipine Besylate (AMLODIPINE BESYLATE) 10 Mg Tablet, 1 TAB PO QDAY, #90 TAB 3 Refills Prov:RAMIRO URBANO MD 06/12/17 Lisinopril (LISINOPRIL) 40 Mg Tablet, 40 MG PO QDAY, #90 TAB 3 Refills Prov:RAMIRO URBANO MD 06/12/17 Reported Medications Ferrous Sulfate (IRON) 325 Mg Tablet, 325 MG PO DAILY 04/20/18 Fluoxetine Hcl (FLUOXETINE HCL) Unknown Strength Tablet, PO QDAY 11/09/17 Alprazolam (XANAX) 0.5 Mg Tablet, 1 TAB PO PRN, TAB 06/08/17 Insulin Aspart (NOVOLOG) 100 Unit/1 Ml Cartridge, 10 UNIT SQ TID 08/11/16 Discontinued Scripts Glucagon,Human Recombinant (GLUCAGON EMERGENCY KIT) 1 Mg Kit, 1 MG IJ ONCE, #1 KIT Prov:RAMIRO URBANO MD 09/19/16 Past Medical/Surgical History Patient has a past medical history of hypertension, hernia, fractures, type 1 diabetes, alcohol use, depression, anxiety. Patient has surgical history of double hernia repair. Reviewed Nurses Notes: Yes Hx Smoking: Yes Smoking Status: Former Smoker Exposure to Second Hand Smoke?: No ( continues to smoke) Hx Substance Use Disorder: No Hx Alcohol Use: Yes (RARELY) Constitutional Vital Sign - Last 24 Hours 04/20/18 04/20/18 04/20/18 04/20/18 11:57 12:00 12:15 12:30 Temp 98.1 Pulse 103 105 101 96 Resp 16 B/P (MAP) 236/139 190/122 (144) Pulse Ox 96 96 96 95 O2 Delivery Room Air 04/20/18 04/20/18 04/20/18 04/20/18 12:45 13:15 13:30 13:45 Pulse 93 94 99 B/P (MAP) 176/110 (132) Pulse Ox 94 95 95 94 04/20/18 04/20/18 04/20/18 04/20/18 14:00 14:15 14:30 14:45 Pulse 94 97 105 93 B/P (MAP) 170/111 (130) 190/115 (140) Pulse Ox 93 94 95 95 04/20/18 15:00 Pulse 93 B/P (MAP) 134/107 (116) Pulse Ox 95 Physical Exam General Appearance: The patient is alert, has no immediate need for airway protection and no current signs of toxicity. Respiratory: Chest is non tender, lungs are clear to auscultation. Cardiac: regular rate and rhythm Gastrointestinal: Abdomen is soft and non tender, no masses, bowel sounds normal. Musculoskeletal: Neck: Neck is supple and non tender. Extremities have full range of motion and are non tender. Skin: No rashes or lesions. Patient does have what appears to be a callus underneath the left great toe, there is no tenderness, there is no drainage noted in that location. However distal to that there is fluctuance. There is no pain or tenderness. Patient does have erythema and warmth to about the mid foot. DIFFERENTIAL DIAGNOSIS: After history and physical exam differential diagnosis was considered for abscess, cellulitis, osteomyelitis. Medical Decision Making Data Points Result Diagram: 04/20/18 1218 04/20/18 1218 Laboratory Hematology Test 04/20/18 12:18 Red Blood Count 4.50 M/uL (4.00-5.60) Mean Corpuscular Volume 83.6 fL (80.0-96.0) Mean Corpuscular Hemoglobin 29.1 pg (26.0-33.0) Mean Corpuscular Hemoglobin Concent 34.8 g/dL (32.0-36.0) Red Cell Distribution Width 12.6 % (11.5-14.5) Mean Platelet Volume 7.6 fL (7.2-11.1) Neutrophils (%) (Auto) 66.5 % (39.4-72.5) Lymphocytes (%) (Auto) 20.2 % (17.6-49.6) Monocytes (%) (Auto) 10.3 % (4.1-12.4) Eosinophils (%) (Auto) 2.3 % (0.4-6.7) Basophils (%) (Auto) 0.7 % (0.3-1.4) Nucleated RBC Relative Count (auto) 0.0 /100WBC Neutrophils # (Auto) 5.7 K/uL (2.0-7.4) Lymphocytes # (Auto) 1.7 K/uL (1.3-3.6) Monocytes # (Auto) 0.9 K/uL (0.3-1.0) Eosinophils # (Auto) 0.2 K/uL (0.0-0.5) Basophils # (Auto) 0.1 K/uL (0.0-0.1) Nucleated RBC Absolute Count (auto) 0.00 K/uL Peripheral Blood Smear No Y/N Sodium Level 138 mmol/L (137-145) Potassium Level 4.3 mmol/L (3.5-5.0) Chloride Level 105 mmol/L (98-107) Carbon Dioxide Level 26 mmol/L (22-30) Blood Urea Nitrogen 24 mg/dl (9-21) Creatinine 1.80 mg/dl (0.66-1.25) Glomerular Filtration Rate Calc 43.4 Random Glucose 252 mg/dl (75-110) Calcium Level 9.5 mg/dl (8.4-10.2) Total Bilirubin 0.6 mg/dl (0.2-1.3) Aspartate Amino Transf (AST/SGOT) 18 U/L (0-35) Alanine Aminotransferase (ALT/SGPT) 31 U/L (0-56) Alkaline Phosphatase 108 U/L (0-126) Total Protein 8.1 g/dl (6.3-8.2) Albumin 3.8 g/dl (3.5-5.0) Chemistry Test 04/20/18 12:18 White Blood Count 8.5 k/uL (4.5-11.0) Red Blood Count 4.50 M/uL (4.00-5.60) Hemoglobin 13.1 g/dL (14.0-18.0) Hematocrit 37.6 % (42.0-52.0) Mean Corpuscular Volume 83.6 fL (80.0-96.0) Mean Corpuscular Hemoglobin 29.1 pg (26.0-33.0) Mean Corpuscular Hemoglobin Concent 34.8 g/dL (32.0-36.0) Red Cell Distribution Width 12.6 % (11.5-14.5) Platelet Count 371 K/uL (150-450) Mean Platelet Volume 7.6 fL (7.2-11.1) Neutrophils (%) (Auto) 66.5 % (39.4-72.5) Lymphocytes (%) (Auto) 20.2 % (17.6-49.6) Monocytes (%) (Auto) 10.3 % (4.1-12.4) Eosinophils (%) (Auto) 2.3 % (0.4-6.7) Basophils (%) (Auto) 0.7 % (0.3-1.4) Nucleated RBC Relative Count (auto) 0.0 /100WBC Neutrophils # (Auto) 5.7 K/uL (2.0-7.4) Lymphocytes # (Auto) 1.7 K/uL (1.3-3.6) Monocytes # (Auto) 0.9 K/uL (0.3-1.0) Eosinophils # (Auto) 0.2 K/uL (0.0-0.5) Basophils # (Auto) 0.1 K/uL (0.0-0.1) Nucleated RBC Absolute Count (auto) 0.00 K/uL Peripheral Blood Smear No Y/N Glomerular Filtration Rate Calc 43.4 Calcium Level 9.5 mg/dl (8.4-10.2) Total Bilirubin 0.6 mg/dl (0.2-1.3) Aspartate Amino Transf (AST/SGOT) 18 U/L (0-35) Alanine Aminotransferase (ALT/SGPT) 31 U/L (0-56) Alkaline Phosphatase 108 U/L (0-126) Total Protein 8.1 g/dl (6.3-8.2) Albumin 3.8 g/dl (3.5-5.0) Microbiology Microbiology Date/Time Source Procedure Growth Status 04/20/18 14:26 Foot Left Gram Stain - Final Resulted 04/20/18 14:26 Foot Left Miscellaneous Culture Pending Resulted 04/20/18 14:26 Foot Left Anaerobic Culture Pending Resulted EKG/Imaging Imaging FOOT LEFT W CONTRAST HISTORY: Soft tissue fluctuance at the plantar aspect of the great toe TECHNIQUE: CT images were obtained through the left ankle and foot with intravenous contrast. 2D coronal and sagittal images obtained from the initial data. One of the following dose optimization techniques was utilized in the performance of this exam: automated exposure control; adjustment of the mA and/or kv according to patient size; or use of iterative reconstruction technique. Specific details can be referenced in the facility's radiology CT exam operational policy. CONTRAST: 75 cc of Isovue-370 COMPARISON: None. FINDINGS: Forefoot: Dorsal and plantar soft tissue edema at the forefoot. At the plantar aspect of the great toe there is a 4.5 x 1.6 x 5.6 cm peripheral enhancing fluid collection at the skin surface with more thickened enhancement at the posterior aspect. No underlying bony destruction or periostitis. There is motion at the forefoot limiting evaluation. Midfoot: TMT joints are well aligned. Ankle: No acute fracture or dislocation. No significant degenerative changes. The talar dome is smooth in contour without evidence of osteochondral lesion. The subtalar joints are unremarkable. No joint effusion. No loose body. Bohler angle is well maintained. Other findings: None significant IMPRESSION: 1. Dorsal and plantar soft tissue edema at the forefoot. At the plantar aspect of the great toe there is a 4.5 x 1.6 x 5.6 cm peripheral enhancing fluid collection at the skin surface with more thickened enhancement at the posterior aspect highly concerning for abscess. Results were called to MIRIAM CULVER at 04/20/2018 2:16 PM. Report Dictated By: Bola Scherer MD at 04/20/2018 2:05 PM Report E-Signed By: Bola Scherer MD at 04/20/2018 2:17 PM ED Course/Re-evaluation ED Course Patient was admitted to an exam room, history and physical were obtained. Differential diagnoses were considered. On examination patient does have a fluctuant area on the plantar aspect of the left foot underneath the great toe. He does have a callus which is formed proximal to that. A CBC, CMP were done. CBC was unremarkable. CMP showed an elevated creatinine of 1.8, less than was checked it was 1.4. A CT scan of the foot was done which showed a collection of fluid in the soft tissue of the foot, he was highly suspicious for an abscess. I did discuss the case with Dr. Nicholson, surgeon, his recommendation was to do an incision and drainage on it. I discussed this with the patient who verbalized understanding and agreement. The area was cleaned, an incision was made described below. I was able to drain purulent material. The wound was then packed described below. It is covered with a dressing. Patient is to follow-up with Dr. Hoskins. Patient did receive 2 g of Rocephin IV, he also will be started on Bactrim and Keflex. I discussed this with the patient who verbalized understanding and agreement with plan. Procedure: Abscess drainage. The patient's abscess was located on the plantar aspect of the left foot. I obtained verbal consent from the patient to drain the abscess who was informed about the possibility of bleeding and pain. The abscess was incised with a scalpel and a large amount of purulent drainage was expressed. I placed packing in the wound to keep it open and draining. The patient tolerated the procedure well. The procedure was performed by myself. Decision to Disposition Date: Apr 20, 2018 Decision to Disposition Time: 14:49 Depart Departure Latest Vital Signs Vital Signs Date Time Temp Pulse Resp B/P (MAP) Pulse Ox O2 Delivery O2 Flow Rate FiO2 04/20/18 15:00 93 134/107 (116) 95 04/20/18 11:57 98.1 16 Room Air Impression: Primary Impression: Foot abscess, left Condition: Improved Disposition: HOME OR SELF-CARE Referrals: RAMIRO URBANO MD (PCP) New Scripts Sulfamethoxazole/Trimet 800-160 Mg Tab (BACTRIM DS TABLET) 1 Each Tablet 1 TAB PO Q12H, #20 TAB Prov: MIRIAM CULVER 04/20/18 Cephalexin 500 Mg Tab (KEFLEX 500 MG TAB) 500 Mg Tablet 500 MG PO Q6H, #28 TAB Prov: MIRIAM CULVER 04/20/18 Patient Instructions: Abscess (ED) Additional Instructions: You have an appointment with Dr. Hoskins on Monday at 4:45 p.m. Take the antibiotics as directed. Limit activity by pain. Return to the ER if condition worsens. You may change the dressing as needed. Leave the pacing in place until you see Dr. Hoskins. MIRIAM CULVER Apr 20, 2018 12:01
[2018-04-20] MEDS ORDERED: FERR325T24 PO (12:05)
[2018-04-20] MEDS ORDERED: NS(*) 0.9% 1000 ML BAG 1,000 ML IV ONE (12:10)
[2018-04-20] MEDS ORDERED: IOPAMIDOL 76% 75 ML INFUS BTL 75 ML ONE (12:29)
[2018-04-20 12:33] LABS: PLATELET COUNT, AUTOMATED 371 K/uL (150-450)
[2018-04-20] MEDS ORDERED: cefTRIAXone(*) 2 GM VIAL 2 GM in NS(*) 0.9% 100 ML ADDVANT BAG 100 ML IVPB ONE (13:40)
--- NOTE | 2018-04-20 14:22 | RADIOLOGY IMAGING REPORT ---
FACILITY: [facility] PATIENT NAME: Jose Christian : 1985 MR: [id number] V: [id number] EXAM DATE: ORDERING PHYSICIAN: MIRIAM CULVER TECHNOLOGIST: Location: [facility] - [place] Patient: Jose Christian : 1985 Visit/Account:[id number] Date of Sevice: 04/20/2018 FOOT LEFT W CONTRAST HISTORY: Soft tissue fluctuance at the plantar aspect of the great toe TECHNIQUE: CT images were obtained through the left ankle and foot with intravenous contrast. 2D cor onal and sagittal images obtained from the initial data. One of the following dose optimization techn iques was utilized in the performance of this exam: automated exposure control; adjustment of the mA and/or kv according to patient size; or use of iterative reconstruction technique. Specific details c an be referenced in the facility's radiology CT exam operational policy. CONTRAST: 75 cc of Isovue-370 COMPARISON: None. FINDINGS: Forefoot: Dorsal and plantar soft tissue edema at the forefoot. At the plantar aspect of the great to e there is a 4.5 x 1.6 x 5.6 cm peripheral enhancing fluid collection at the skin surface with more t hickened enhancement at the posterior aspect. No underlying bony destruction or periostitis. There is motion at the forefoot limiting evaluation. Midfoot: TMT joints are well aligned. Ankle: No acute fracture or dislocation. No significant degenerative changes. The talar dome is nneka h in contour without evidence of osteochondral lesion. The subtalar joints are unremarkable. No joint effusion. No loose body. Bohler angle is well maintained. Other findings: None significant IMPRESSION: 1. Dorsal and plantar soft tissue edema at the forefoot. At the plantar aspect of the great toe there is a 4.5 x 1.6 x 5.6 cm peripheral enhancing fluid collection at the skin surface with more thickene d enhancement at the posterior aspect highly concerning for abscess. Results were called to MIRIAM CULVER at 04/20/2018 2:16 PM. Report Dictated By: Bola Scherer MD at 04/20/2018 2:05 PM Report E-Signed By: Bloa Scherer MD at 04/20/2018 2:17 PM WSN:[email or web address]
[2018-04-20] MEDS ORDERED: SULF-198 PO (14:44)
[2018-04-20] MEDS ORDERED: CEPH500T7 PO (14:44)
[2018-04-20 15:00] VITALS: BP 134/107
== END 2018-04-20 15:05 | disposition home or self-care (01) ==
LOC: ER 11:57
DX: L02.612 Cutaneous abscess of left foot (principal); A49.01 Methicillin susceptible Staphylococcus aureus infection, unspecified site
CPT/HCPCS: 10060; 36415; 73701; 85025; 87040; 87071; 87073; 87077; 87186; 87205; 96365; 99284; J0696; J7050; Q9967; 82040; 82247; 82310; 82374; 82435; 82565; 82947; 84075; 84132; 84155; 84295; 84450; 84460; 84520

== ENCOUNTER 2018-05-03 13:30 | Outpatient (RCR) | payer OTHER ==
--- NOTE | 2018-04-24 11:10 | NUR ---
This Physical Therapist or Printing Roller Polisher was present for the entire physical therapy session directing the services, making the skilled judgement, and was not engaged in treating another patient or doing another task at the same time as the treatment session. Addendum: 04/25/18 at 1455 by LUIS KENDALL PT Amended: Links added.
--- NOTE | 2018-04-25 15:19 | PT INITIAL EVALUATION ---
MEDICAL DIAGNOSIS: L) great toe; plantar surface of MTP joint; neuropathic ulcer TREATMENT DIAGNOSIS: same DATE OF ONSET: 04/17/18 SUBJECTIVE: . Pt presented to PT w/ a cast shoe on the L foot. Pt reported that he noticed an ulcer on the bottom of his L foot located on the plantar surface of the MTP joint. Two days before (04/17/18) pt noticed that the ulcer area had developed into a bubble like blister. The pt did not seek any medical attention and was just keeping an eye on the area. On , the pt reported that the bubble like blister had increased in size by double and was also red and irritated. With it being , the pt again did not seek any medical attention. By Monday, the pt felt the urgency to seek medical attention as his L foot was now swollen and red and feared for an infection. The pt went to the ER and the medical team on staff diagnosed an abscess and drained it. Pt was instructed to follow up with Dr. Aidee DPM on 04/23/18. The pt reported his drill instructor debrided the abscess and callus site further, covered the wound, and referred him to OP PT for further wound management care. The pt reports that he is really mindful of his feet given his diabetes, neuropathy, myelopathy, and PMH. Pt reports he wears his AFOs as prescribed, but has had the same diabetic insoles for a longer period of time, without switching them out as is recommended. Pt was helping his friend move furniture and was on his feet more than normal, which is what he believes started the more recent blister on the plantar side of his L foot. REHAB PROBLEM LIST: Open neuropathic ulcer PREVIOUS MEDICAL HISTORY: DMII, myelopathy, neuropathy and previous L) foot ulcers OCCUPATION: Disabled OBJECTIVE: Wound area at L great toe plantar surface of MTP joint does not show increased redness, warmth or odor indicating no active signs of infection. Wound currently measures 1.6cm L x 2.6cm W x 0.2cm D. An area which measures 6.1cm L x 5.7cm W x 0.1cm D surrounds the wound bed. This area is a product of the pressure abscess relieved from the Merchandiser visit. This area isn't draining and shows normal wound healing. L great toe IP joint shows signs of proximal swelling, however pt indicates reduced since ER visit. Palpation: Strong pedal pulse noted with palpation. Sensation: Compromised due to neuropathy. Special Tests: Capillary refill is < 2 seconds. Mobility: Independent. ASSESSMENT: Initial eval complete followed by tx. Wound dressings upon PT arrival were clean, dry, and intact. Once removed, the wound was cleansed w/ sterile gauze and sterile saline. Non-excisional debridment w/ tweezers were applied to wound bed to a depth of subcutaneous tissue, which measures 1.6cm L x 2.6cm W x 0.2cm D in which yellow slough was removed revealing healthy tissue. An area which measures 6.1cm L x 5.7cm W x 0.1cm D surrounds the wound bed. This area is a product of the pressure abcess relieved from the Merchandiser visit. This area isn't draining and shows normal wound healing. The site was covered w/ non-adhesive vasaline mesh. Foam was placed on top of the vasaline mesh and in between the first and second toe. The site was then wrapped in sterile gauze and reinforced with coban. The pt was sent home w/ extra bandages in case the site needs changed before the next OP PT visit. Pt is instructed to continue to wear his cast shoe on the L foot to help w/ off loading of the L Great toe MTP as well as continue to wear his AFO on the R foot. Pt is scheduled to f/u w/ OP PT for wound management in a week. Short Term Goals 1. Wound bed to present with 100% granulation and no signs or symptoms of infection. 2. Pt to maintain a clean, dry, and intact dressing in between OP PT visits. 3. Pt to replace insoles as recommended by Merchandiser. 4. Wound to completely reepithelialize with no further drainage and pt to manage callus appropriately. Patient's Goals Wound to heal without further complications. PLAN: Patient to be seen for non-excisional debridement with the use of sharps in order to remove non-viable tissue and slough, facilitating a moist and healthy wound base, as well as selection of advanced wound care products to efficiently heal wound and decrease risk of infection. 1x/Week for up to 3 months Thank you for this referral. If you have any questions, comments, or concerns about this report or plan, please contact me at . Nikolas Hagan, SPT H. Chloe Isaac, PT, MPT, OMS MTDD
[~2018-05-03 13:30] MED LIST changes: -AMLO-111 PO; -AMLO-113 PO; +AMLO-125 PO; +AMLO-127 PO; +FERR325T24 PO
[2018-05-07] MEDS ORDERED: METO200T12 PO (14:08)
[2018-05-07] MEDS ORDERED: LOSA100T75 PO (14:09)
[2018-05-07] MEDS ORDERED: PNEI IM (14:37)
[2018-05-07] MEDS ORDERED: FLU60SYR36 IM (14:37)
--- NOTE | 2018-05-10 14:00 | PT PLAN OF CARE ---
Physician: Dr. Hoskins, YASMEENM Patient is being seen: Jose Christian Therapist: Davon Isaac, PT, MPT, OMS Medical Diagnosis: L) great toe; plantar surface of MTP joint; neuropathic ulcer Treatment Diagnosis: same Date of Onset: 04/17/18 Date of Initial Evaluation: 04/24/18 Date patient was last seen: 05/10/18 Number of treatments: 2 Number of cancellations/No shows: 0 INTERVENTIONS: Non-excisional debridement with the use of sharps in order to remove non-viable tissue and slough, facilitating a moist and healthy wound base, as well as selection of advanced wound care products to efficiently heal wound and decrease risk of infection. GOALS: 1. Wound bed to present with 100% granulation and no signs or symptoms of infection.- MET 2. Pt to maintain a clean, dry, and intact dressing in between OP PT visits.- MET 3. Pt to replace insoles as recommended by Bias Cutting Machine Operator Vertical. - Will follow up with DPM 4. Wound to completely reepithelialize with no further drainage and pt to manage callus appropriately.- MET PATIENT'S GOAL: Wound to heal without further complications. Status of Patient's Goals: Met Patient Compliance: excellent Prognosis: Good Reasons for continuing therapy: None at this time, as original ulcer is fully healed and blistered area is resolved as well. Pt verbalizes understanding of prevention strategies for future concerns and to consult with DPM immediately if new areas present, as well as to obtain appropriate insoles more frequently. Thank you for this referral. If you have any questions, comments, or concerns about this report or plan, please contact me at . Nikolas Hagan, SPT Davon Isaac, PT, MPT, OMS [facility]
[2018-07-26] MEDS ORDERED: SPIR25TA80 PO (16:14)
== END 2018-07-23 ==
LOC: PT 13:30
PROVIDERS: ATTEND Podiatrist Foot & Ankle Surgery
DX: E11.621 Type 2 diabetes mellitus with foot ulcer (principal); E11.40 Type 2 diabetes mellitus with diabetic neuropathy, unspecified; L97.522 Non-pressure chronic ulcer of other part of left foot with fat layer exposed
CPT/HCPCS: 97161

== ENCOUNTER → 2018-05-07 | Outpatient (CLI) | payer OTHER ==
[~2018-05-07] MED LIST changes: +AMLO-111 PO; +AMLO-113 PO; -AMLO-125 PO; -AMLO-127 PO; +FLU60SYR36 IM; +LOSA100T75 PO; +PNEI IM
== END ==
LOC: LAB 14:07
PROVIDERS: ATTEND Emergency Medicine
DX: N18.9 Chronic kidney disease, unspecified (principal)
CPT/HCPCS: 81001

== ENCOUNTER → 2018-05-11 | Outpatient (CLI) | payer OTHER ==
--- NOTE | 2018-05-11 16:59 | RADIOLOGY IMAGING REPORT ---
FACILITY: [facility] PATIENT NAME: Jose Christian : 1985 MR: [id number] V: [id number] EXAM DATE: ORDERING PHYSICIAN: RAMIRO URBANO TECHNOLOGIST: Location: [facility] - [place] Patient: Jose Christian : 1985 Visit/Account:[id number] Date of Sevice: 05/11/2018 KIDNEYS HISTORY: CKD COMPARISON: None EXAMINATION: Renal ultrasound HISTORY: COMPARISON: None. FINDINGS: Kidneys: Right kidney-11.1 x 5.8 x 5.8 cm. No hydronephrosis. Normal cortical thickness. No focal mass lesi ons. Normal echogenicity. Left kidney 10.3 x 6.1 x 5.3 cm. No hydronephrosis. No cortical mass lesions. Normal echogenicity. Uniform and symmetric blood flow in each kidney by Doppler ultrasound. Hydronephrosis: none. Bladder: Bilateral ureteral jets. Bladder is 111 mL prevoid. 2 cm post void. Bilateral ureteral je ts seen. Abdominal aorta and IVC: patent by Doppler ultrasound. IMPRESSION: 1. Negative renal ultrasound. No hydronephrosis. Well-maintained renal cortex with no evidence of obvious chronic renal medical disease. Report Dictated By: Juliano Cooper MD at 05/11/2018 4:43 PM Report E-Signed By: Juliano Cooper MD at 05/11/2018 4:55 PM WSN:[email or web address]
== END ==
LOC: US 02:18
PROVIDERS: ATTEND Emergency Medicine
DX: N18.9 Chronic kidney disease, unspecified (principal)
CPT/HCPCS: 76705

== ENCOUNTER → 2018-06-08 | Outpatient (CLI) | payer OTHER ==
[~2018-06-08] MED LIST changes: -AMLO-111 PO; -AMLO-113 PO; +AMLO-125 PO; +AMLO-127 PO
[2018-06-11 09:00] LABS: PLATELET COUNT, AUTOMATED 315 K/uL (150-450)
== END ==
LOC: LAB 14:34
PROVIDERS: ATTEND Internal Medicine Nephrology
DX: Z13.9 Encounter for screening, unspecified (principal)
CPT/HCPCS: 80074; 82040; 82310; 82374; 82435; 82550; 82565; 82575; 82947; 84100; 84132; 84295; 84520; 85025; 86160; 86255; 87389

== ENCOUNTER → 2018-07-12 | Outpatient (CLI) | payer OTHER ==
[2018-07-12 16:01] LABS: PLATELET COUNT, AUTOMATED 363 K/uL (150-450)
== END ==
LOC: LAB 15:47
PROVIDERS: ATTEND Internal Medicine Nephrology
DX: E11.42 Type 2 diabetes mellitus with diabetic polyneuropathy (principal); I10 Essential (primary) hypertension; N28.9 Disorder of kidney and ureter, unspecified; R80.9 Proteinuria, unspecified
CPT/HCPCS: 36415; 82310; 82374; 82435; 82565; 82947; 84132; 84295; 84520; 85025; 85610; 85730

== ENCOUNTER → 2018-07-26 | Outpatient (CLI) | payer OTHER ==
[2018-07-26 16:31] LABS: PLATELET COUNT, AUTOMATED 344 K/uL (150-450)
--- NOTE | 2018-07-27 11:26 | EKG ---
[place] [facility] [place] NAME: CHANTE MAI : [id number] MR: [id number] V: [id number] EXAM DATE: ORDERING PHYSICIAN: RAMIRO URBANO TECHNOLOGIST: DELMA Test Reason : Blood Pressure : / mmHG Vent. Rate : 064 BPM Atrial Rate : 064 BPM P-R Int : 166 ms QRS Dur : 086 ms QT Int : 382 ms P-R-T Axes : 061 062 060 degrees QTc Int : 394 ms Normal sinus rhythm Normal ECG When compared with ECG of 08-JUN-2017 11:06, Previous ECG has undetermined rhythm, needs review Nonspecific T wave abnormality no longer evident in Inferior leads Referred By: KIRBY Confirmed By:
--- NOTE | 2018-07-27 22:33 | RT HOLTER TEST ---
FACILITY: [facility] - [place] PATIENT NAME: CHANTE MAI : [id number] MR: [id number] V: [id number] EXAM DATE: ORDERING PHYSICIAN: RAMIRO URBANO TECHNOLOGIST: Gonzalo Hoover-up date: 2018-07-26 17:01:00 Duration: 23:49:00 Test Indications: SYNCOPE Medications: Metroprolol Amlodipin Sprironolactone Losartan Chlorthadone Buspirone Fluoxetine Novolog 18117 QRS complexes 1 Ventricular ectopics which represent <1 % of total QRS comp. * Supraventricular ectopics which represent % of total QRS comp. * Paced QRS complexes which represent % of total QRS comp. VENTRICULAR ECTOPY 1 Isolated 0 Bigeminal Cycles 0 Couplets 0 Runs 0 Beats in Runs * Beats LONGEST at * BPM at :: -- * Beats FASTEST at * BPM at :: -- SUPRAVENTRICULAR ECTOPY * Isolated * Couplets * Runs * Beats in Runs * Beats LONGEST at * BPM at :: -- * Beats FASTEST at * BPM at :: -- HEART RATES 41 MIN at 11:02:25 2018-07-27 68 AVG 87 MAX at 23:55:44 2018-07-26 LONGEST RR 1.512 secs at 11:02:23 2018-07-27 S-T LEVELS Channel 1 -12.800 mm MIN at 17:01:00 2018-07-26 -12.800 mm MAX at 17:01:00 2018-07-26 Channel 2 -12.800 mm MIN at 17:01:00 2018-07-26 -12.800 mm MAX at 17:01:00 2018-07-26 Channel 3 -12.800 mm MIN at 17:01:00 2018-07-26 -12.800 mm MAX at 17:01:00 2018-07-26 The patient was in a normal sinus rhythm during all the symptom reported events. He was in a sinus r hythm throughout the test with one asymptomatic ventricular ectopy. He had some intermittent T inversions in the 3rd lead of unclear significance. Confirmed by JULIA BLOUNT ([id number]) on 07/27/2018 10:32:57 PM Referred By: Overread By: JULIA BLOUNT
== END ==
LOC: LAB 16:09
PROVIDERS: ATTEND Emergency Medicine
DX: R55 Syncope and collapse (principal)
CPT/HCPCS: 36415; 82310; 82374; 82435; 82565; 82947; 83540; 83550; 84132; 84295; 84520; 85025; 93225

== ENCOUNTER → 2018-08-02 | Outpatient (CLI) | payer OTHER | LOC: RESP 07:26 | PROVIDERS: ATTEND Nurse Practitioner Pediatrics | DX: G47.33 Obstructive sleep apnea (adult) (pediatric) (principal) ==

== ENCOUNTER → 2018-08-20 | Outpatient (CLI) | payer OTHER | LOC: LAB 16:14 | PROVIDERS: ATTEND Internal Medicine Nephrology | DX: E10.42 Type 1 diabetes mellitus with diabetic polyneuropathy (principal); I10 Essential (primary) hypertension; R80.9 Proteinuria, unspecified; N28.9 Disorder of kidney and ureter, unspecified | CPT/HCPCS: 36415; 82040; 82310; 82374; 82435; 82565; 82570; 82947; 84100; 84132; 84156; 84295; 84520 ==

== ENCOUNTER → 2018-10-16 | Outpatient (CLI) | payer OTHER ==
[~2018-10-16] MED LIST changes: +APAP INH; +CHLOR25 PO; +FERR240T18 PO; +LAMO25TA68 PO
== END ==
LOC: LAB 10:03
PROVIDERS: ATTEND Emergency Medicine
DX: E55.9 Vitamin D deficiency, unspecified (principal); I10 Essential (primary) hypertension; E10.9 Type 1 diabetes mellitus without complications
CPT/HCPCS: 36415; 82306; 82465; 82607; 83718; 84478

== ENCOUNTER → 2018-11-20 | Outpatient (CLI) | payer OTHER ==
[~2018-11-20] MED LIST changes: +ROSU10TA PO
--- NOTE | 2018-11-20 16:13 | RADIOLOGY IMAGING REPORT ---
FAC[place] [facility] [place] PATIENT NAME: Jose Christian : 1985 MR: [id number] V: [id number] EXAM DATE: ORDERING PHYSICIAN: CHUCK BRIGHT TECHNOLOGIST: Location: [facility] Patient: Jose Christian : 1985 Visit/Account:[id number] Date of Sevice: 11/20/2018 Exam type: US VENOUS LOWER EXT RT History: Swelling of right calf and foot Comparison: None. Findings: The right lower extremity veins were imaged including the right common femoral vein, greater saphenou s vein, superficial femoral vein, popliteal vein, posterior tibial vein, peroneal vein and anterior t ibial veins revealing no evidence of intraluminal thrombi the veins were compressible and demonstrate d augmentation IMPRESSION: 1. No sonographic evidence DVT involving the right lower extremity veins Report Dictated By: Adriana Horowitz MD at 11/20/2018 4:07 PM Report E-Signed By: Adriana Horowitz MD at 11/20/2018 4:08 PM WSN:[email or web address]
== END ==
LOC: US 14:10
PROVIDERS: ATTEND Internal Medicine Nephrology
DX: R60.0 Localized edema (principal); E11.40 Type 2 diabetes mellitus with diabetic neuropathy, unspecified

== ENCOUNTER → 2018-12-01 | Outpatient (CLI) | payer OTHER ==
[2018-12-01 13:12] LABS: PLATELET COUNT, AUTOMATED 335 K/uL (150-450)
== END ==
LOC: LAB 12:08
PROVIDERS: ATTEND Internal Medicine Nephrology
DX: E10.21 Type 1 diabetes mellitus with diabetic nephropathy (principal); N18.3 Chronic kidney disease, stage 3 (moderate); R80.9 Proteinuria, unspecified; I12.9 Hypertensive chronic kidney disease with stage 1 through stage 4 chronic kidney disease, or unspecified chronic kidney disease
CPT/HCPCS: 36415; 82040; 82310; 82374; 82435; 82565; 82570; 82947; 83735; 84100; 84132; 84156; 84295; 84520; 85025